=== PATIENT | female | born 1990 | race Caucasian/White ===

== ENCOUNTER 2017-01-03 20:57 | Emergency (ER) | payer OTHER ==
[~2017-01-03] VITALS: Ht 170.2 cm; Wt 97.5 kg
--- NOTE | ~2017-01-03 | EKG ---
[address] [address] ELECTROCARDIOGRAM REPORT Name: DEIDRE BARRAGAN Room #: DEP [id number] Admission: 01/03/17 Attend Phys: Discharge: 01/03/17 Date of : [birth year] Report #: [id number] THIS REPORT FOR: //name// [facility] ED Test Date: 2017-01-03 Test Time: 21:11:30 Pat Name: DEIDRE BARRAGAN Department: Room: Gender: F [employer]: [place] : 1990 Requested By: Deepa Pagan Order Number: [id number] MD: David Paez Measurements Intervals [place] Rate: 134 P: 71 WV: 149 QRS: 67 QRSD: 87 T: -1 QT: 294 QTc: 439 Interpretive Statements Sinus tachycardia Compared to ECG 10/31/2013 22:01:16 Sinus rhythm no longer present Electronically Signed On 01-04-2017 22:18:53 CDT by David Paez [email or web address] <ELECTRONICALLY SIGNED> By: David Paez MD 01/04/17 2218 10 10 David Paez MD /LISA
[~2017-01-03 20:57] MED LIST: ASPIRIN81 M2 PO; AUGMENTIN 875-1 EACH PO; BACTRIM DS TAB1 EACH PO; BACTROBAN CREAM30 G1 TOP; BEYAZ 28 TABLE1 EACH PO; CITRATE OF MAG296 ML PO; DIUREX MAX50 MG PO; IBUPROFEN 600600 M1; IBUPROFEN 600600 M1 PO; NORCO 5-325 TA1 EACH PO; SUPRAX400 MG PO; TOBREX5 ML OPHTHALMIC; VYVANSE60 MG PO
[2017-01-03] MEDS ORDERED: VYVANSE70 MG PO (21:16)
[2017-01-03 21:17] LABS: ABSOLUTE NEUTROPHILS 7.2 thou/uL (1.4-8.2); BASOPHILS 0.8 % (0.0-2.0); EOSINOPHILS 0.7 % (0.0-3.0); HEMATOCRIT 41.1 % (37.0-47.0); HEMOGLOBIN 14.1 gm/dL (12.0-15.0); LYMPHOCYTES 27.3 % (24.0-44.0); MCH 32.5 pg (26.0-34.0); MCHC 34.3 g/dL (28.0-37.0); MCV 94.6 fL (80.0-100.0); MONOCYTES 7.3 % (1.0-8.0); PLATELET COUNT 276 thou/uL (150-400); POLYS 63.9 % (36.0-66.0); RBC 4.35 mil/uL (4.20-5.00); RDW 12.8 % (10.5-14.5); WBC 11.3 thou/uL (4.0-11.0)
[2017-01-03 21:18] LABS: MANUAL DIFF NO
[2017-01-03 21:28] LABS: ANION GAP 15 mmol/L (7-16); BUN 9 mg/dL (7-18); CALCIUM 9.2 mg/dL (8.5-10.1); CHLORIDE 99 mmol/L (98-107); CO2 23 mmol/L (21-32); GLUCOSE 117 mg/dL (74-106); POTASSIUM 3.3 mmol/L (3.5-5.1); SODIUM 137 mmol/L (136-145)
[2017-01-03 21:36] LABS: TROPONIN-I < 0.04 ng/mL (<0.04-0.07)
[2017-01-03 22:17] VITALS: BP 146/92
== END 2017-01-03 22:31 | disposition home or self-care (01) ==
LOC: ER 20:57
PROVIDERS: Emergency Medicine
DX: R00.0 Tachycardia, unspecified (principal); F41.9 Anxiety disorder, unspecified; R00.2 Palpitations; F17.210 Nicotine dependence, cigarettes, uncomplicated; F10.99 Alcohol use, unspecified with unspecified alcohol-induced disorder

== ENCOUNTER 2018-07-13 18:33 | Emergency (ER) | payer OTHER ==
[~2018-07-13] VITALS: Ht 170.2 cm; Wt 79.4 kg
[~2018-07-13 18:33] MED LIST changes: +VYVANSE70 MG PO
[2018-07-13 18:50] LABS: URINE BILIRUBIN NEGATIVE (Negative); URINE BLOOD TRACE (Negative); URINE CLARITY CLEAR; URINE COLOR YELLOW; URINE GLUCOSE-RANDOM* NEGATIVE (Negative); URINE KETONES NEGATIVE (Negative); URINE NITRITE-REFLEX NEGATIVE (Negative); URINE PROTEIN (DIPSTICK) NEGATIVE (Negative); URINE SPECIFIC GRAVITY 1.025 (1.005-1.035); URINE UROBILINOGEN 0.2 E.U./dl (0.2-1.0)
[2018-07-13 18:53] LABS: URINE LEUKOCYTES-REFLEX 1+ (Negative)
[2018-07-13 18:57] LABS: BACTERIA-REFLEX 1-9 Few /HPF (None Seen); CASTS None Seen /LPF (None Seen); CRYSTALS None Seen /LPF (None Seen); MUCUS 0-3 Light strn/LPF (None Seen); SQUAMOUS 0-3 Few /LPF (0-3); URINE RBC 0-2 Rare /HPF (0-2); URINE WBC-REFLEX 6-15 Few /HPF (0-5); WBC CLUMPS Occasional (None Seen)
[2018-07-13] MEDS ORDERED: ONDANSETRON HCL4 M2 PO (19:33)
[2018-07-13] MEDS ORDERED: NAPROSYN500 MG PO (19:33)
[2018-07-13] MEDS ORDERED: CEFDINIR300 MG PO (19:33)
[2018-07-13 20:01] LABS: ABSOLUTE NEUTROPHILS 4.9 thou/uL (1.4-8.2); BASOPHILS 0.5 % (0.0-2.0); EOSINOPHILS 1.1 % (0.0-3.0); HEMATOCRIT 40.1 % (37.0-47.0); HEMOGLOBIN 14.4 gm/dL (12.0-15.0); LYMPHOCYTES 26.9 % (24.0-44.0); MCH 36.4 pg (26.0-34.0); MCHC 35.9 g/dL (28.0-37.0); MCV 101.3 fL (80.0-100.0); MONOCYTES 8.8 % (1.0-8.0); PLATELET COUNT 169 thou/uL (150-400); POLYS 62.7 % (36.0-66.0); RBC 3.96 mil/uL (4.20-5.00); RDW 13.1 % (10.5-14.5); WBC 7.8 thou/uL (4.0-11.0)
[2018-07-13 20:18] LABS: LARGE PLATELETS RARE
[2018-07-13 20:25] LABS: CALCIUM 9.1 mg/dL (8.5-10.1); CREATININE 0.7 mg/dL (0.6-1.0); POTASSIUM 3.8 mmol/L (3.5-5.1)
[2018-07-13 20:31] LABS: ALBUMIN 3.5 g/dL (3.4-5.0); TOTAL BILIRUBIN 0.5 mg/dL (<0.1-1.0); TOTAL PROTEIN 6.9 g/dL (6.4-8.2)
[2018-07-13 21:30] VITALS: BP 149/93
== END 2018-07-13 21:30 | disposition home or self-care (01) ==
LOC: ER 18:33
PROVIDERS: Emergency Medicine
DX: N12 Tubulo-interstitial nephritis, not specified as acute or chronic (principal); F17.210 Nicotine dependence, cigarettes, uncomplicated